=== PATIENT | male | born 1945 | race Caucasian/White ===

== ENCOUNTER 2024-10-24 08:13 | Day surgery (SDC) | payer MEDICARE ==
[2024-10-22 11:49] LABS: BASOPHILS % 0.4 % (0.0-1.0); EOSINOPHILS % 2.7 % (0.0-6.0); LYMPHOCYTES % 25.1 % (18.0-39.1); MONOCYTES % 9.0 % (4.4-11.3); NEUTROPHILS % 62.7 % (38.7-80.0); RED CELL DISTRIBUTION WIDTH 12.3 % (11.7-14.4)
[2024-10-22 12:23] LABS: EST GLOMERULAR FILTRATION RATE 79.0 ML/MIN (>=60)
[2024-10-24] VITALS (13 sets, daily range): BP systolic 129–177; BP diastolic 51–87; PULSE 44–59; RESP 12–20; TEMP 96.7–97.6; O2SAT 99–100
[~2024-10-24] VITALS: Ht 175.3 cm; Wt 76.2 kg
[~2024-10-24 08:13] MED LIST: ASPIRIN EC81 MG PO; LIPITOR20 MG PO; PLAVIX75 MG PO
[2024-10-24] MEDS ORDERED: VERAPAMIL HCL 2.5 MG/ML 2 ML VIAL ONE (09:06)
[2024-10-24] MEDS ORDERED: HEPARIN SOD (PORCINE) 1000 UNIT/ML 30ML ONE (09:06)
[2024-10-24] MEDS ORDERED: FENTANYL CITRATE/PF 100MCG/2 ML INJ ONE ×2 (09:07→11:06)
[2024-10-24] MEDS ORDERED: HEPARIN SOD/SOD CHLORIDE 2,000 ML ONE (09:07)
[2024-10-24] MEDS ORDERED: LIDOCAINE HCL 2% LOCAL 20 ML VIAL ONE (09:07)
[2024-10-24] MEDS ORDERED: IOPAMIDOL 370 MG/ML 100 ML INFUS..BTL INJ ONE ×3 (09:07→11:24)
[2024-10-24] MEDS ORDERED: MIDAZOLAM HCL 2 MG/2 ML VIAL ONE ×3 (09:07→11:05)
[2024-10-24] MEDS ORDERED: SODIUM CHLORIDE 0.9% 1000ML 2,000 ML ONE (09:08)
[2024-10-24] MEDS ORDERED: ASPIRIN 325 MG TAB ONE (10:36)
[2024-10-24] MEDS ORDERED: CLOPIDOGREL BISULFATE 75 MG TAB ONE (10:37)
[2024-10-24] MEDS ORDERED: HYDROCODONE/APAP 5MG-325MG TAB ONE (12:23)
[2024-10-24] MEDS: HYDROCODONE/APAP 5MG-325MG TAB PO ONE (12:27)
[2024-10-24] MEDS ORDERED: LIDOCAINE 1% W/EPINEPHRINE 20 ML VIAL ONE (14:21)
== END 2024-10-24 15:00 | disposition home or self-care (01) ==
LOC: CATH LAB 08:13
PROVIDERS: ATTEND Internal Medicine Cardiovascular Disease
DX: I70.293 Other atherosclerosis of native arteries of extremities, bilateral legs (principal); I10 Essential (primary) hypertension; Z01.812 Encounter for preprocedural laboratory examination; Z79.82 Long term (current) use of aspirin; Z79.02 Long term (current) use of antithrombotics/antiplatelets; Z79.899 Other long term (current) drug therapy
CPT/HCPCS: 37227; 75625; 76937; 80053; 85025; C1724; C1725 ×2; C1760; C1769 ×4; C1887 ×2; C1894; C2623 ×3; J1644; J2003; J2250; J3010; J7030; Q9967; 36247; 37224; 37226; 37229; 75716; 99152; 99153